=== PATIENT | female | born 1930 | race Caucasian/White ===

== ENCOUNTER 2018-01-03 20:42 | Emergency (ER) | payer MEDICAID ==
[~2018-01-03] VITALS: Ht 160 cm; Wt 50.0 kg
[2018-01-03 21:06] VITALS: BP 148/87
== END 2018-01-04 00:15 | disposition home or self-care (01) ==
LOC: ER 21:03
DX: R09.89 Other specified symptoms and signs involving the circulatory and respiratory systems (principal); I10 Essential (primary) hypertension; F03.90 Unspecified dementia, unspecified severity, without behavioral disturbance, psychotic disturbance, mood disturbance, and anxiety
CPT/HCPCS: 70360; 71045; 99284